=== PATIENT | female | born 1985 | race Caucasian/White ===

== ENCOUNTER → 2021-05-08 14:09 | Outpatient (BNVA) | payer SELFPAY | PROVIDERS: PCP Family Medicine; Referring Provider Nurse Practitioner Family; Visit Provider Obstetrics & Gynecology | DX: Z12.4 Encounter for screening for malignant neoplasm of cervix (principal) | CPT/HCPCS: 88175 ==

== ENCOUNTER → 2021-06-04 15:30 | Outpatient (BNVA) | payer SELFPAY | PROVIDERS: PCP Family Medicine; Visit Provider Obstetrics & Gynecology | DX: Z31.0 Encounter for reversal of previous sterilization (principal); R10.32 Left lower quadrant pain | CPT/HCPCS: 87635 ==

== ENCOUNTER 2021-06-09 16:43 | Observation (INO) | payer SELFPAY ==
[2021-06-04 13:17] VITALS: BMI 25.0
--- NOTE | 2021-06-04 13:46 | ANES.PREANE2 ---
Pre-Anesthetic Assessment Pre-Anesthetic Assessment: Height/Weight: Height 1.68 m Weight 70.307 kg Preop Diagnosis: pelvic pain, essure device in place Proposed Procedure: Operation Date: 06/09/21 10:15 Proposed Procedures p Laparoscopic Assist Vaginal Hysterectomy 64893 R10.32 Z311.0(Not Applicable) - Laverne Morataya MD s Salpingectomy 78732 R10.32 Z311.0(Bilateral) - Laverne Morataya MD Familial anesthetic complications: none Social: Social History: Tobacco and No alcohol Exam: Pre-Anes Outpt Exam: alert, oriented x 3, clear to auscultation bilaterally and regular rate & rhythm Airway: Cervical ROM: WNL MP: 1 Dentition: Chipped and Other (missing) Pulmonary: Pulmonary: Asthma (inhaler couple days a week) Neuropsych: Neuropsych: Anxiety and Seizure (epilepsy - last one a month ago, has partial seizures for the most part - takes medical marijuana) Comments: 4 seizures a month on average - does have postictal states for approximately 30 - 45 minutes Anesthetic Plan: ASA status: 3 Risk of > 500 ml blood loss (7ml/kg in children): No PFSH Anesthesia PFSH: Medical History (Updated 05/09/21 @ 06:17 by Laverne Morataya MD) Bipolar disorder, current episode depressed, severe, without psychotic features Generalized anxiety disorder Social phobia, unspecified Social History Smoking and tobacco status: current every day smoker cigarettes Smoking risk assessment/counseling performed?: Yes Tobacco counseling given: counseling >3 minutes Data Anesthesia Cardiac Studies: No Data to Display
[2021-06-04 15:17] LABS: Basophils % 0.5 %; Eosinophils % 0.3 %; Hematocrit 44.1 % (37.0-47.0); Hemoglobin 15.1 g/dL (11.5-15.3); Lymphocytes # 3.1 10^3/uL (0.8-4.8); Lymphocytes % 35.3 %; Mean Corpuscular HGB Conc 34.2 g/dL (30.0-36.0); Mean Corpuscular Volume 87.5 fL (81-99); Mean Platelet Volume 10.7 fL (7.4-10.4); Monocytes # 0.5 10^3/uL (0.2-0.9); Monocytes % 5.8 %; Neutrophils # 5.03 10^3/uL (1.8-7.7); Neutrophils % 57.9 %; Nucleated Red Blood Cells % 0 %; Platelet Count 295 10^3/cmm (130-400); Red Blood Count 5.04 10^6/uL (4.1-5.3); Red Cell Distribution Width 12.3 % (12.1-15.1); White Blood Count 8.7 10^3/uL (4.0-10.0)
[2021-06-04 16:02] LABS: Anion Gap 17.9 (5-19); Blood Urea Nitrogen 8 mg/dL (6-20); Calcium 9.1 mg/dL (8.5-10.5); Carbon Dioxide 21 mmol/L (22-29); Chloride 101 mmol/L (98-107); Glomerular Filtration Rate 111.9 mL/min (90-130); Glucose 81 mg/dL (65-115); Osmolality Calculated 279 mOsm/kg (285-295); Potassium 3.9 mmol/L (3.5-5.1); Sodium 136 mmol/L (136-145)
[2021-06-09] VITALS (25 sets, daily range): BP systolic 104–136; BP diastolic 67–89; PULSE 57–96; RESP 15–96; TEMP 36.2–37.1; O2SAT 91–100
[2021-06-09] MEDS: acetaminophen 1,000 MG/100 ML PIGGYBACK 400 MG IV (09:06)
[2021-06-09] MEDS: gabapentin 300 mg Capsule PO (09:10)
[2021-06-09] MEDS: phenazopyridine 100 mg Tablet 200 MG PO (09:11)
[2021-06-09] MEDS: CELEcoxib 200 mg Capsule 400 MG PO (09:12)
[2021-06-09] MEDS: ketorolac 30 mg/mL INJ IVP ×3 (09:14→21:07)
[2021-06-09] MEDS: sodium chloride 0.9% 1,000 ML 30 ML IV ×2 (09:18→13:10)
[2021-06-09 09:27] LABS: OR HCG Qualitative Urine Negative (Negative)
--- NOTE | 2021-06-09 09:35 | P.ANESUD_ITS ---
Pre-Anesthetic Update Pre-Anesthetic Assessment: Date of Surgery/Procedure: 06/09/21 Preop Laura gnosis: pelvic pain, essure device in place Proposed Procedure: Operation Date: 06/09/21 10:15 Proposed Procedures p Laparoscopic Assist Vaginal Hysterectomy 69236 R10.32 Z311.0(Not Applicable) - Laverne Morataya MD s Salpingectomy 32032 R10.32 Z311.0(Bilateral) - Laverne Morataya MD Any changes to Pre-Anesthetic Assessment?: No Last Intake: Intake Last Liquid Date 06/08/21 Last Liquid Time 19:00 Last Solid Date 06/08/21 Last Solid Time 20:00 Labs Last 48hrs: Laboratory Results - last 48 hr 06/09/21 09:19 Urine HCG, Qual Negative Vitals: Temperature 98.7 F 06/09/21 09:00 Temperature Source Temporal Artery S can 06/09/21 09:00 Pulse Rate 66 06/09/21 09:00 Pulse Rhythm 06/09/21 09:00 Pulse Strength 3+ Normal 06/09/21 09:00 Respiratory Rate 18 06/09/21 09:00 Blood Pressure 119/76 06/09/21 09:00 Blood Pressure Jimena n 90 06/09/21 09:00 Pulse Oximetry 98 06/09/21 09:00 Oxygen Delivery Me thod 06/09/21 09:00 Exam: Pre-Anes Outpt Exam: alert, oriented x 3, clear to auscultation bilaterally and regular rate & rhythm Cardiac Studies: No Data to Display
--- NOTE | 2021-06-09 10:15 | W.PM.OPSUD ---
Surgery/Procedure H&P Update DATE OF PROCEDURE: June 09, 2021 DATE H&P PERFORMED: 06/04/21 H&P UPDATE INFORMATION: I have reviewed H&P completed within last 30 days, I have examined patient prior to procedure and No changes to prior documentation PREOP DIAGNOSIS: pelvic pain, essure device in place PLANNED PROCEDURE: Operation Date: 06/09/21 10:15 Proposed Procedures p Laparoscopic Assist Vaginal Hysterectomy 24438 R10.32 Z311.0(Not Applicable) - Laverne Morataya MD s Salpingectomy 99909 R10.32 Z311.0(Bilateral) - Laverne Morataya MD
[2021-06-09] MEDS: vasopressin 20 unit/mL INJ 4 UNIT INJECTION (11:25)
--- NOTE | 2021-06-09 12:32 | P.OP_ITS ---
Operative Report Date of procedure: June 09, 2021 Pre-op Diagnosis: pelvic pain, essure device in place Post-op diagnosis: same Post-op Findings: slightly enlarged uterus, normal appearing tubes and ovaries Procedure Done: laparoscopic assisted vaginal hysterectomy with bilateral salpingectomy Specimens removed/disposition: uterus and bilateral fallopian tubes to pathology Surgeon: Laverne Morataya Anesthesia: General Estimated blood loss (mL): 50 IV fluids (mL): 1,000 Urine output (mL): 150 Complications: none Findings: 12 week sized uterus. Normal appearing tubes and ovaries Condition: stable Disposition: PACU Procedure: The patient was taken to the operating room where general anesthesia was administered and found to be adequate. She was prepped and draped in the normal sterile fashion in the dorsal lithotomy position in [facility]. A Gillette catheter was placed. A weighted speculum was placed into the vagina and the anterior lip of the cervix was grasped with a single tooth tenaculum. The Zumi uterine manipulator was placed. The weighted speculum was removed. The gloves were changed and attention was turned to the abdomen. A 5 mm infraumbilical incision was made. Using a 5 mm port with the camera, the port was placed into the abdomen. The abdomen was insufflated. Two low, lateral 5 mm ports were placed on the left and right under direct visualization from the camera. The right tube was grasped and elevated. Using the laparoscopic cautery, the infundibulopelvic ligament was ligated superior to the ovary and the round ligament was ligated as well. This was performed the same way on the left. Attention was then turned to the vaginal portion of the procedure. The weighted speculum was placed into the vagina. The zumi manipulator was removed. The single tooth tenaculum was removed and replaced with the giovanni's tenaculum. 10 mL of dilute Pitressin was injected at the vesicovaginal junction. A circumferential incision was made at the vesicovaginal junction and the vaginal mucosa was reflected cephalad. The posterior peritoneum was entered sharply with the Metzenbaum scissors and the long weighted speculum replaced. Using the Neel clamps the uterosacral ligaments were clamped cut and suture- ligated. The anterior peritoneum was entered sharply with the metzenbaum scissors. Then sequentially the uterine arteries and cardinal ligaments were clamped cut and suture-ligated. A single-tooth tenaculum was used to deliver the uterus. The utero-ovarian ligaments were clamped cut and suture-ligated bilaterally and the specimen was removed. The bilateral fallopian tubes came with the specimen. The ovaries were visualized and found to be normal. The peritoneum was closed with a pursestring using 2-0 Vicryl. The vaginal cuff was closed with 0 Vicryl in a running locked pattern incorporating the uterosacral ligaments into the lateral aspects of the vaginal cuff. The Gillette catheter was removed and the cystoscope advanced into the bladder. The patient was given pyridium and bilateral spill was noted. There were no injuries or deficits noted in the bladder. The cystoscope was removed and the Gillette was replaced. Vaginal packing was placed for good hemostasis. She abdominal incisions were closed with 2-0 vicryl. The patient tolerated the procedure well. Sponge lap and needle counts were correct x3. She was taken to the recovery room in stable condition.
[2021-06-09] MEDS: fentaNYL 50 mcg/mL INJ 2mL IVP ×2 (13:08→13:13)
[2021-06-09] MEDS: morphine 4 mg/mL SDV 1 mL 2 MG IVP ×2 (13:55→15:00)
--- NOTE | 2021-06-09 15:38 | ANE.PACU2 ---
Inpatient post-anesthesia follow up: Airway intact: Yes Vital signs: Temperature 97.8 F Pulse Rate 76 Respiratory Rate 18 Blood Pressure 136/75 Pulse Oximetry 95 Oxygen Delivery Me thod Room Air Oxygen Flow Rate 8 Fraction of Inspir ed Oxygen Hydration adequate: Yes Nausea and vomiting: No Pain level: 3 Mental status: Baseline
[2021-06-09] MEDS: HYDROmorphone 1 mg/mL INJ 1 mL 1.5 MG IVP (17:01)
[2021-06-09] MEDS: dextrose 5%-lactated ringers 1,000 ML 125 ML IV (18:10)
[2021-06-09] MEDS: docusate sodium 100 mg Capsule PO (18:10)
[2021-06-09] MEDS: oxyCODONE-APAP 5-325 mg Tablet PO (22:03)
[2021-06-10] VITALS: BP 109/73; PULSE 88; RESP 18; TEMP 37.1; O2SAT 97
[2021-06-10] MEDS: ketorolac 30 mg/mL INJ IVP ×2 (02:44→09:29)
[2021-06-10 04:00] VITALS: BP 100/64; PULSE 68; RESP 18; TEMP 37.1; O2SAT 96
[2021-06-10 04:10] VITALS: RESP 18
[2021-06-10] MEDS: oxyCODONE-APAP 5-325 mg Tablet PO (04:10)
[2021-06-10 09:08] VITALS: BP 100/68; PULSE 57; RESP 17; TEMP 36.7; O2SAT 96
[2021-06-10] MEDS: docusate sodium 100 mg Capsule PO (09:29)
--- NOTE | 2021-06-10 09:49 | PM.DCS ---
Discharge Providers Date of Admission: 06/09/21 16:43 Date of Discharge: June 10, 2021 Attending Provider at Admission: Laverne Morataya MD Attending Provider at Discharge: Laverne Morataya MD Primary Care Provider: Afshan Perry MD Diagnoses at Discharge Discharge Diagnosis (1) Postoperative state: Status: Acute Reason for Visit Reason for Visit: Laparoscopic assisted vaginal hysterectomy Hospital Course Hospital Course The patient was admitted for surgery. she did well postoperatively and was ready for discharge on day #1 Physical Exam Urinary Catheter Management^: Gillette: Cath Placed During This Visit: yes Reason for Continuing Indwelling Catheter: Required Immobilization for Trauma or Surgery or Anesthesia Urinary Catheter Date of Insertion: 06/09/21 Urinary Catheter Time of Insertion: 11:02 Discharge Data Data Completed and Pending: Pending at discharge Category Date Time Status Hemagram Timed Lab 06/10/21 05:00 Ordered Pathology: Surgic al [PTH] Routine Pth 06/09/21 12:52 Received Vitals: Last Vital Signs Temp 98.0 F 06/10/21 09:08 Pulse 57 L 06/10/21 09:08 Resp 17 06/10/21 09:08 BP 100/68 06/10/21 09:08 Pulse Ox 96 06/10/21 09:08 Discharge Plan Discharge Patient Disposition: Home Condition: Stable Prescriptions: New oxycodone-acetaminophen 5-325 mg Tablet 1 tab PO Q4H PRN (Reason: Moderate To Severe Pain) Qty: 30 RF: 0 Continued ibuprofen [Motrin IB] 200 mg tablet 200 mg PO Q6H PRN (Reason: Pain) RF: 0 Discontinued acetaminophen [Tylenol 8 Hour] 650 mg tablet extended release 650 mg PO Q8H RF: 0 Discharge Orders: Discharge Order (Routine); Ordered 06/10/21 Ordered By: Laverne Morataya Patient Instructions: Opioid Safety Discharge Attestations Time Spent in Discharge Care*: less than 30 min Quality Metrics Clinical Quality Measures During this hospital stay, did patient experience: None Coding Level of Care Code Acute g FW AL note Diagnoses Postoperative state Z98.890
--- NOTE | 2021-06-10 09:52 | PC.CHAP ---
Pastoral Care Encounter/Spiritual Assessment Type of Contact [] Declined nurses superintendent visit [] Patient/Family/Request visit [] Outpatient visit [] Follow-up visit [] Physician referral [] Code/Alert [x] Routine visit [] Staff referral [] Actively dying [] Patient sleeping [] Family support [] [] Out of room [] Palliative care [] [] Receiving care in room [] Pre-surgical visit [] Trauma [] Long length of stay [] ICU visit [] Other: Relational/Emotional Strength [x] Patient feels connected with others/family/visitors/staff [] Distress [] Loneliness/isolation [] Abandonment Spirituality of Patient [x] Person of Ninfa [] Attends Gnosticist of their Ninfa [] Believes in Prayer [] Reads Bible or Faith materials [] There are Spiritual issues to be addressed On Site Services Specialist Interventions [x] Prayer [] Active listening [] Non-anxious presence [] Spiritual/emotional support [] Crisis/trauma care [] Spiritual counseling [] Bereavement support [] Provided bereavement packet [] Provided Bible/devotional materials [] Provided toy/stuffed animal, coloring book to patient or family member [] Provided Communion [] Anointing/[place]iber[place] [] Salvation [x] Completed spiritual assessment [] Other: Impact on Illness or Injury [] Angry [] Fearful [] Anxious [] Often cries [] Exhaustion [] Unable to work [] Unable to attend baptism [] Unable to walk/stand [] Unable to read [] Unable to drive [] Unable to eat/drink [] Unable to sleep [] Unable to be with family [] Patient intubated [] Other: Summary Time spent with patient 10 min
[2021-06-10 10:58] LABS: Hematocrit 38.4 % (37.0-47.0); Hemoglobin 12.6 g/dL (11.5-15.3); Mean Corpuscular HGB Conc 32.8 g/dL (30.0-36.0); Mean Corpuscular Hemoglobin 29.9 pg (28.0-34.0); Mean Corpuscular Volume 91.2 fL (81-99); Mean Platelet Volume 10.3 fL (7.4-10.4); Platelet Count 280 10^3/cmm (130-400); Red Blood Count 4.21 10^6/uL (4.1-5.3); Red Cell Distribution Width 12.9 % (12.1-15.1); White Blood Count 11.9 10^3/uL (4.0-10.0)
--- NOTE | 2021-06-10 12:03 | PC.NURSE ---
Patient was educated on discharge instructions. Medications sent to [facility] pharmacy, [place]. Patient walked down with to private vehicle.
[2021-06-10 12:08] VITALS: BP 100/68; PULSE 57; RESP 17; TEMP 36.7; O2SAT 96
--- NOTE | 2021-06-11 18:33 | PC.RESP ---
Smoking Cessation information sent to patient.
== END 2021-06-10 11:00 | disposition home or self-care (01) ==
LOC: MEDSURG 16:43
PROVIDERS: Admitting Provider Obstetrics & Gynecology; PCP Family Medicine; Visit Provider Obstetrics & Gynecology
PROC: 0UT9FZZ Resection of Uterus, Via Natural or Artificial Opening With Percutaneous Endoscopic Assistance (ICD-10-PCS; CPT 58552; principal; 2021-06-09 10:05)
PROC: (CPT 58700; 2021-06-09 10:05)
DX: R10.2 Pelvic and perineal pain (principal); J45.909 Unspecified asthma, uncomplicated; F41.9 Anxiety disorder, unspecified; G40.909 Epilepsy, unspecified, not intractable, without status epilepticus; F17.210 Nicotine dependence, cigarettes, uncomplicated
CPT/HCPCS: 58552; 36415; 80048; 81025; 84703; 85025; 85027; 87086; 88307; 96365; 96374; G0378; J0690; J1100; J1170; J1885; J2250; J2270; J2405; J2704; J2710; J3010; J3490; J7030